=== PATIENT | female | born 1995 | race Native Hawaiian/Other Pacific Islander ===

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

== ENCOUNTER 2022-02-01 18:56 | Emergency (ER) | payer BC ==
[~2022-02-01] VITALS: Ht 165.1 cm; Wt 106.6 kg
[2022-02-01 19:06] VITALS: TEMP 98.4
[2022-02-01 20:22] VITALS: BP 102/78
== END 2022-02-01 20:22 | disposition home or self-care (01) ==
LOC: ED 18:56
DX: S81.832A Puncture wound without foreign body, left lower leg, initial encounter (principal); S80.812A Abrasion, left lower leg, initial encounter; W54.0XXA Bitten by dog, initial encounter; Y92.89 Other specified places as the place of occurrence of the external cause
CPT/HCPCS: 96372; 99283; J0696; J1885

== ENCOUNTER 2022-05-30 21:51 | Emergency (ER) | payer BC ==
[~2022-05-30] VITALS: Ht 165.1 cm; Wt 106.6 kg
[2022-05-30 22:00] VITALS: TEMP 97.7
[2022-05-30 22:50] LABS: PLATELET COUNT 302 K/uL (152-353)
[2022-05-30 22:57] LABS: POTASSIUM 3.9 mmol/L (3.6-5.2)
[2022-05-31 02:13] VITALS: BP 123/86
== END 2022-05-31 02:23 | disposition home or self-care (01) ==
LOC: ED 21:51
PROVIDERS: Emergency Medicine
DX: R56.9 Unspecified convulsions (principal)
CPT/HCPCS: 36415; 80053; 81002; 81025; 85027; 93005; 99283